=== PATIENT | female | born 1965 | race Caucasian/White ===

== ENCOUNTER 2018-12-07 21:57 | Emergency (ER) | payer OTHER ==
[~2018-12-07] VITALS: Ht 152.4 cm; Wt 56.7 kg
[2018-12-07 22:04] VITALS: Ht 152.4 cm; Wt 56.7 kg
[2018-12-07 22:50] LABS: BASOPHIL % 0.5 % (0-2); PLATELET COUNT 321 x10^3mcL (130-400)
[2018-12-07 22:59] LABS: CALCIUM 9.2 mg/dL (8.5-10.1); CARBON DIOXIDE 29.4 mmol/L (21-32); CREATININE SERUM 1.2 mg/dL (0.6-1.0); POTASSIUM SERUM 3.5 mmol/L (3.5-5.1)
[2018-12-07 23:02] LABS: BILIRUBIN TOTAL 0.67 mg/dL (0.20-1.00); TOTAL PROTEIN, SERUM 8.2 g/dL (6.4-8.2)
[2018-12-08 00:21] VITALS: BP 116/86
== END 2018-12-08 00:21 | disposition home or self-care (01) ==
LOC: ED 21:57
PROVIDERS: Emergency Medicine
DX: I16.0 Hypertensive urgency (principal); Z91.14 Patient's other noncompliance with medication regimen; N39.0 Urinary tract infection, site not specified
CPT/HCPCS: 83880; J1885; J3490